=== PATIENT | female | born 1995 | race Caucasian/White ===

== ENCOUNTER 2017-01-29 12:05 | Emergency (ER) | payer MEDICAID ==
[~2017-01-29] VITALS: Ht 180.3 cm; Wt 90.0 kg
[~2017-01-29 12:05] MED LIST: BUPR-86 PO; CANA1TAB PO; CANA1TAB2 PO; CEPH-376 PO; CITA20TA9 PO; DOXY100T PO; GABA300C10 PO; GLYB5TAB3 PO; HYDR-3138 PO; HYDR-3240 PO; IBUP-1222 PO; IBUP800T PO; INSU100C SQ-INSULIN; INSU100V13 SQ; INSU300I SQ-INSULIN; LISI5TAB7 PO; ONDA-39 PO; ONDA4TAB7 PO; OXYC-223 PO; OXYC-302 PO; PNV1TABL4 PO; SULF1TAB24 PO; TRAZ100T15 PO; VANC125C11 PO
[2017-01-29 12:06] VITALS: BP 127/86
[2017-01-29] MEDS ORDERED: FLUORESCEIN OPHTHALMIC 1 MG STRIP ONE (12:33)
[2017-01-29] MEDS ORDERED: PROPARACAINE OPHTH 0.5%, 15ML ONE (12:33)
[2017-01-29] MEDS ORDERED: PROPARACAINE OPHTH 0.5%, 15ML EACHEYE ONE (13:00)
[2017-01-29] MEDS ORDERED: FLUORESCEIN OPHTHALMIC 1 MG STRIP EACHEYE ONE (13:00)
== END 2017-01-29 13:03 | disposition home or self-care (01) ==
LOC: ED 12:57
DX: H10.31 Unspecified acute conjunctivitis, right eye (principal); E11.9 Type 2 diabetes mellitus without complications
CPT/HCPCS: 99281

== ENCOUNTER 2017-03-20 11:09 | Inpatient (IN) | payer MEDICAID ==
[~2017-03-20] VITALS: Ht 180.3 cm; Wt 86.2 kg
[2017-03-20] MEDS ORDERED: VANCOMYCIN PER PHARMACY MC PRN ×2 (11:30→16:00)
[2017-03-20] MEDS ORDERED: SODIUM CHLORIDE FLUSH 10ML SYR IVF ONE (12:00)
[2017-03-20] MEDS ORDERED: VANCOMYCIN 1,800 MG in SODIUM CHLORIDE 0.9% 250 ML IV ONE (12:00)
[2017-03-20 13:55] LABS: BLOOD UREA NITROGEN 12 mg/dL (7-18)
[2017-03-20] MEDS ORDERED: HYDROcodone/APAP 5/325 TABLET PO ONE (14:00)
[2017-03-20] MEDS ORDERED: INSULIN SINGLE DOSE, ER SQ-INSULIN ONE (14:39)
[2017-03-20] MEDS: INSULIN REGULAR 100 UNITS/ML, 3ML VIAL SQ-INSULIN SCH (14:41)
[2017-03-20] MEDS ORDERED: HYDROcodone/APAP 5/325 TABLET ONE (14:43)
[2017-03-20] MEDS ORDERED: SODIUM CHLORIDE FLUSH 10ML SYR IVF PRN (15:30)
[2017-03-20] MEDS ORDERED: SODIUM CHLORIDE 0.9% 1,000ML IVBOLUS ONE (15:30)
[2017-03-20] MEDS ORDERED: LORazepam 1MG TABLET PO PRN (16:00)
[2017-03-20] MEDS: INSULIN ASPART 100 UNITS/ML, PEN SQ-INSULIN SCH ×2 (16:00→21:11)
[2017-03-20] MEDS ORDERED: TRAZODONE 50MG TABLET PO PRN (16:00)
[2017-03-20] MEDS ORDERED: DEXTROSE 50%, 50ML SYRINGE IVPush PRN (16:00)
[2017-03-20] MEDS ORDERED: LABETALOL 5MG/ML, 20ML IVPush PRN (16:00)
[2017-03-20] MEDS ORDERED: DOCUSATE 100 MG CAPSULE PO PRN (16:00)
[2017-03-20] MEDS ORDERED: DEXTROSE 4 GM TAB.CHEW PO PRN (16:00)
[2017-03-20] MEDS ORDERED: GLUCAGON 1 MG IM PRN (16:00)
[2017-03-20] MEDS ORDERED: ACETAMINOPHEN 325 MG TABLET PO PRN (16:00)
[2017-03-20] MEDS ORDERED: ONDANSETRON 2MG/ML, 2ML IVPush PRN (16:00)
[2017-03-20] MEDS ORDERED: CLINDAMYCIN PMX 900MG/50ML 50 ML ONE (16:31)
[2017-03-20] MEDS ORDERED: HEPARIN 5,000 UNITS/ML, 1ML ONE (16:31)
[2017-03-20] MEDS: SODIUM CHLORIDE 0.9% 1,000 ML IV SCH ×2 (16:39→23:46)
[2017-03-20] MEDS: HEPARIN 5,000 UNITS/ML, 1ML SQ SCH ×2 (16:40→23:47)
[2017-03-20] MEDS: CLINDAMYCIN PMX 900MG/50ML 50 ML IV SCH ×2 (16:40→23:46)
[2017-03-20 17:57] VITALS: BP 107/66
[2017-03-20] MEDS ORDERED: PHARMACOKINETIC CONSULTATION MC ONE (18:00)
[2017-03-20] MEDS ORDERED: PHARMACOKINETIC MONITORING MC PRN (18:00)
[2017-03-20 18:40] VITALS: BP 111/71
[2017-03-20] MEDS: SODIUM CHLORIDE FLUSH 10ML SYR IVF SCH (21:00)
[2017-03-20] MEDS: INSULIN DETEMIR 100 UNITS/ML, PEN SQ-INSULIN SCH (21:11)
[2017-03-21 01:36] VITALS: BP 111/74
[2017-03-21] MEDS: VANCOMYCIN 1,800 MG in SODIUM CHLORIDE 0.9% 250 ML IV SCH ×2 (01:47→14:01)
[2017-03-21 05:32] LABS: BLOOD UREA NITROGEN 10 mg/dL (7-18)
[2017-03-21] MEDS: CLINDAMYCIN PMX 900MG/50ML 50 ML IV SCH ×3 (07:45→23:47)
[2017-03-21] MEDS: INSULIN ASPART 100 UNITS/ML, PEN SQ-INSULIN SCH ×4 (07:46→21:47)
[2017-03-21] MEDS: HEPARIN 5,000 UNITS/ML, 1ML SQ SCH ×3 (07:46→23:47)
[2017-03-21] MEDS: SODIUM CHLORIDE FLUSH 10ML SYR IVF SCH ×2 (07:47→21:00)
[2017-03-21 08:03] VITALS: BP 124/79
[2017-03-21] MEDS: INSULIN REGULAR 100 UNITS/ML, 3ML VIAL SQ-INSULIN SCH ×3 (08:21→16:22)
[2017-03-21] MEDS: INSULIN DETEMIR 100 UNITS/ML, PEN SQ-INSULIN SCH ×2 (09:31→21:46)
[2017-03-21] MEDS: SODIUM CHLORIDE 0.9% 1,000 ML IV SCH ×2 (11:16→22:11)
[2017-03-21 14:56] VITALS: BP 112/74
[2017-03-21 21:45] VITALS: BP 116/79
[2017-03-22] MEDS: VANCOMYCIN 1,800 MG in SODIUM CHLORIDE 0.9% 250 ML IV SCH ×2 (02:15→15:42)
[2017-03-22 03:35] VITALS: BP 147/92
[2017-03-22] MEDS: SODIUM CHLORIDE 0.9% 1,000 ML IV SCH (06:02)
[2017-03-22 06:21] LABS: ASPARTATE AMINO TRANSFERASE 11 U/L (15-37); BLOOD UREA NITROGEN 18 mg/dL (7-18)
[2017-03-22 07:04] VITALS: BP 121/80
[2017-03-22] MEDS: INSULIN ASPART 100 UNITS/ML, PEN SQ-INSULIN SCH ×3 (07:49→16:00)
[2017-03-22] MEDS: HEPARIN 5,000 UNITS/ML, 1ML SQ SCH ×2 (07:49→16:00)
[2017-03-22] MEDS: CLINDAMYCIN PMX 900MG/50ML 50 ML IV SCH (07:49)
[2017-03-22] MEDS: INSULIN DETEMIR 100 UNITS/ML, PEN SQ-INSULIN SCH (07:50)
[2017-03-22] MEDS: SODIUM CHLORIDE FLUSH 10ML SYR IVF SCH ×2 (07:52→10:15)
[2017-03-22 14:03] VITALS: BP 117/89
[2017-03-22] MEDS ORDERED: SULF1TAB24 PO (15:04)
[2017-03-22 15:44] VITALS: BP 121/82
== END 2017-03-22 16:15 | disposition left against medical advice (07) | DRG 603 ==
LOC: ED 14:13 → EDIP 15:31 → 4NOR 18:02
PROVIDERS: ADMIT Internal Medicine; ATTEND Internal Medicine
DX: L03.211 Cellulitis of face (principal); E87.1 Hypo-osmolality and hyponatremia; R65.10 Systemic inflammatory response syndrome (SIRS) of non-infectious origin without acute organ dysfunction; F15.10 Other stimulant abuse, uncomplicated; B95.62 Methicillin resistant Staphylococcus aureus infection as the cause of diseases classified elsewhere; E10.65 Type 1 diabetes mellitus with hyperglycemia; F19.10 Other psychoactive substance abuse, uncomplicated; Z90.49 Acquired absence of other specified parts of digestive tract; Z79.4 Long term (current) use of insulin; Z90.89 Acquired absence of other organs; Z91.14 Patient's other noncompliance with medication regimen; Z86.14 Personal history of Methicillin resistant Staphylococcus aureus infection
CPT/HCPCS: 36415; 80048; 80053; 82962; 83036; 83605; 83735; 84100; 85025; 87040; 93306; 96361; 96365; J1644; J1815; J3370; J7030; J7050

== ENCOUNTER 2017-05-25 23:56 | Emergency (ER) | payer MEDICAID ==
[~2017-05-25] VITALS: Ht 170.2 cm; Wt 88.7 kg
[~2017-05-25 23:56] MED LIST changes: -HYDR-3138 PO; +HYDR-3237 PO; +IBUP-1223 PO; -IBUP800T PO; -ONDA-39 PO; +ONDA4TAB12 PO; -OXYC-223 PO; +OXYC-306 PO
[2017-05-26] MEDS ORDERED: SODIUM CHLORIDE 0.9% 1,000ML IVBOLUS ONE (01:00)
[2017-05-26] MEDS ORDERED: SODIUM CHLORIDE FLUSH 10ML SYR IVF ONE (01:00)
[2017-05-26 01:08] LABS: HEMATOCRIT 44.5 % (34.6-47.8); HEMOGLOBIN 15.2 g/dL (11.7-16.4); WHITE BLOOD COUNT 9.3 x10^3/uL (3.4-10)
[2017-05-26 01:21] LABS: BLOOD UREA NITROGEN 9 mg/dL (7-18)
[2017-05-26] MEDS ORDERED: MORPHINE SULFATE 4 MG/ML, 1ML ONE (01:23)
[2017-05-26] MEDS ORDERED: ONDANSETRON 2MG/ML, 2ML ONE (01:23)
[2017-05-26 01:27] LABS: ASPARTATE AMINO TRANSFERASE 11 U/L (15-37)
[2017-05-26] MEDS ORDERED: ONDANSETRON 2MG/ML, 2ML IVPush ONE (01:30)
[2017-05-26] MEDS ORDERED: MORPHINE SULFATE 4 MG/ML, 1ML IVPush PRN (01:30)
[2017-05-26 02:15] VITALS: BP 127/90
[2017-05-26] MEDS ORDERED: INSULIN REGULAR 100 UNITS/ML, 3ML VIAL SQ-INSULIN ONE (02:30)
== END 2017-05-26 03:00 | disposition home or self-care (01) ==
LOC: ED 23:59
DX: S90.32XA Contusion of left foot, initial encounter (principal); S90.512A Abrasion, left ankle, initial encounter; S09.90XA Unspecified injury of head, initial encounter; E10.65 Type 1 diabetes mellitus with hyperglycemia; F17.210 Nicotine dependence, cigarettes, uncomplicated; Z79.4 Long term (current) use of insulin; V03.90XA Pedestrian on foot injured in collision with car, pick-up truck or van, unspecified whether traffic or nontraffic accident, initial encounter; Y93.89 Activity, other specified; Y92.488 Other paved roadways as the place of occurrence of the external cause; Y99.8 Other external cause status
CPT/HCPCS: 36415; 70450; 72125; 73610; 73630; 80053; 82010; 82962; 84703; 85025; 96372; 96374; 96375; 99285; J2405; J7030

== ENCOUNTER 2018-07-03 10:19 | Emergency (ER) | payer MEDICAID ==
[~2018-07-03] VITALS: Ht 180.3 cm; Wt 97.6 kg
[~2018-07-03 10:19] MED LIST changes: +TRAZ-137 PO; -TRAZ100T15 PO
[2018-07-03] MEDS ORDERED: LIDOCAINE-MPF 1%, 5ML ONE (10:57)
[2018-07-03] MEDS ORDERED: LIDOCAINE-MPF 1%, 5ML INFIL ONE (11:00)
[2018-07-03] MEDS ORDERED: HYDROcodone/APAP 5/325 TABLET PO ONE (11:30)
[2018-07-03] MEDS ORDERED: HYDROcodone/APAP 5/325 TABLET ONE (11:33)
[2018-07-03 11:40] VITALS: BP 138/81
== END 2018-07-03 11:42 | disposition home or self-care (01) ==
LOC: ED 10:42
DX: L02.01 Cutaneous abscess of face (principal); E11.9 Type 2 diabetes mellitus without complications; Z90.49 Acquired absence of other specified parts of digestive tract
CPT/HCPCS: 10060; 99283

== ENCOUNTER 2018-10-15 16:54 | Emergency (ER) | payer MEDICAID ==
[~2018-10-15] VITALS: Ht 180.3 cm; Wt 92.9 kg
[2018-10-15 17:14] VITALS: BP 100/76
--- NOTE | 2018-10-15 17:23 | NUR ---
PT AMBULATED TO ROOM WITH EDT.
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
--- NOTE | 2018-10-15 17:39 | NUR ---
AFSHAN DONAHUE, AT BEDSIDE TO EVALUATE PT.
--- NOTE | 2018-10-15 18:13 | NUR ---
Patient/Caregiver given discharge instructions and they have confirmed that they understand the instructions. Patient ambulatory with steady gait.
[2018-10-15] MEDS ORDERED: HUMALOG SC (19:47)
[2018-10-15] MEDS ORDERED: INSU100I28 SQ-INSULIN (19:47)
== END 2018-10-15 18:14 | disposition home or self-care (01) ==
LOC: ED 18:08
DX: E10.65 Type 1 diabetes mellitus with hyperglycemia (principal); E66.9 Obesity, unspecified; Z76.0 Encounter for issue of repeat prescription
CPT/HCPCS: 82962; 99283

== ENCOUNTER 2018-10-24 08:07 | Emergency (ER) | payer MEDICAID ==
[~2018-10-24] VITALS: Ht 180.3 cm; Wt 93.6 kg
[~2018-10-24 08:07] MED LIST changes: +HUMALOG SC; +INSU100I28 SQ-INSULIN
[2018-10-24 08:09] VITALS: BP 131/86
--- NOTE | 2018-10-24 08:48 | NUR ---
to rm 5 from lobby
--- NOTE | 2018-10-24 09:35 | NUR ---
Discharge instructions discussed with patient including when to return to emergency department, verbalizes understanding. Prescription provided with instruction for use.
== END 2018-10-24 09:39 | disposition home or self-care (01) ==
LOC: ED 09:25
DX: L03.811 Cellulitis of head [any part, except face] (principal); E11.9 Type 2 diabetes mellitus without complications; E66.8 Other obesity; Z68.28 Body mass index [BMI] 28.0-28.9, adult
CPT/HCPCS: 82962; 99283

== ENCOUNTER 2018-10-30 07:40 | Emergency (ER) | payer MEDICAID ==
[~2018-10-30] VITALS: Ht 180.3 cm; Wt 90.9 kg
[2018-10-30 07:46] VITALS: BP 142/97
[2018-10-30] MEDS ORDERED: CLIN300C8 PO (08:03)
== END 2018-10-30 08:39 | disposition home or self-care (01) ==
LOC: ED 08:33
DX: L02.811 Cutaneous abscess of head [any part, except face] (principal); E11.65 Type 2 diabetes mellitus with hyperglycemia; E66.9 Obesity, unspecified
CPT/HCPCS: 10160; 99284

== ENCOUNTER 2019-11-25 07:44 | Emergency (ER) | payer MEDICAID ==
[~2019-11-25] VITALS: Ht 180.3 cm; Wt 106.0 kg
[~2019-11-25 07:44] MED LIST changes: +CLIN300C8 PO; +ONDA-89 PO; -ONDA4TAB12 PO; -TRAZ-137 PO; +TRAZ-175 PO
--- NOTE | 2019-11-25 07:57 | NUR ---
occupational health manager note: L&D called for heart tones on pt.
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
[2019-11-25] MEDS ORDERED: FAMOTIDINE 20 MG/2 ML ONE (08:30)
[2019-11-25] MEDS ORDERED: SODIUM CHLORIDE FLUSH 10ML SYR IVF ONE (08:30)
[2019-11-25] MEDS ORDERED: FAMOTIDINE 20 MG/2 ML IV ONE (08:30)
[2019-11-25] MEDS ORDERED: ACETAMINOPHEN 500 MG TABLET PO ONE (08:30)
[2019-11-25] MEDS ORDERED: ONDANSETRON 2MG/ML, 2ML ONE (08:30)
[2019-11-25] MEDS ORDERED: ONDANSETRON 2MG/ML, 2ML IVPush ONE (08:30)
[2019-11-25 08:50] LABS: ALANINE AMINOTRANSFERASE 11 U/L (12-78); ALBUMIN 1.8 g/dL (3.4-5.0); ANION GAP 10 mmol/L (5-15); CHLORIDE 104 mmol/L (98-107); CREATININE 0.76 mg/dL (0.55-1.02)
[2019-11-25 08:51] LABS: MEAN CORPUSCULAR HEMOGLOBIN 27.8 pg (27.0-34.8); MEAN CORPUSCULAR HGB CONC 33.2 g/dL (32.4-35.8); MEAN CORPUSCULAR VOLUME 83.8 fL (80-100); MEAN PLATELET VOLUME 11.6 fL (7.4-10.4); PLATELET COUNT 156 x10^3/uL (130-400); RED BLOOD COUNT 4.76 x10^6/uL (3.82-5.3); RED CELL DISTRIBUTION WIDTH 13.6 % (9.6-15.2)
[2019-11-25 08:52] LABS: ALKALINE PHOSPHATASE 129 U/L (45-117); BILIRUBIN,TOTAL 0.3 mg/dL (0.2-1.0); TOTAL PROTEIN 6.3 g/dL (6.4-8.2)
[2019-11-25 09:10] VITALS: BP 116/68
[2019-11-25 09:19] LABS: MD YES
[2019-11-25 09:27] LABS: BAND#(MANUAL) 0.78 x10^3/uL; BANDS%(MANUAL) 7 % (0-7); LYMPH#(MANUAL) 1.23 x10^3/uL (1-3.4); LYMPHS% (MANUAL) 11 % (22-44); MONOS#(MANUAL) 0.56 x10^3/uL (0.3-2.7); MONOS% (MANUAL) 5 % (2-9); REACTIVE LYMPHS # (MANUAL) 0.11 x10^3/uL (0-0); REACTIVE LYMPHS % (MANUAL) 1 % (0-0); SEG#(MANUAL) 8.51 x10^3/uL (1.8-6.8); SEGS% (MANUAL) 76 % (42-75)
[2019-11-25 09:28] LABS: <PLATELET ESTIMATE> ADEQUATE; <RBC MORPHOLOGY> NORMAL; LARGE PLATELETS 1+; PMNS WITH VACUOLES 1+
[2019-11-25 09:39] LABS: MICROSCOPIC AUTO
[2019-11-25 09:44] LABS: CULTURE INDICATED? YES
[2019-11-25 09:45] LABS: RAPID INFLUENZA A Negative (Negative); RAPID INFLUENZA B Negative (Negative)
[2019-11-25 09:50] LABS: AMPHETAMINE SCREEN, URINE Negative (Negative); BARBITURATE SCREEN, URINE Negative (Negative); BENZODIAZEPINE SCREEN, URINE Negative (Negative); CANNABINOID SCREEN, URINE Negative (Negative); COCAINE SCREEN, URINE Negative (Negative); METHADONE SCREEN, URINE Negative (Negative); OPIATE SCREEN, URINE Negative (Negative)
--- NOTE | 2019-11-25 09:52 | NUR ---
Received report and assumed patient care. RN to bedside, educated patient on need for urinalysis. Patient agreeable. RN reviewed clean catch urine instructions. Patient verbalized understanding. Ambulated steadily to bathroom. Awaiting analysis.
== END 2019-11-25 10:56 | disposition home or self-care (01) ==
LOC: ED 09:19
DX: O23.13 Infections of bladder in pregnancy, third trimester (principal); O21.8 Other vomiting complicating pregnancy; R10.13 Epigastric pain; E66.9 Obesity, unspecified; Z68.32 Body mass index [BMI] 32.0-32.9, adult; Z90.49 Acquired absence of other specified parts of digestive tract; Z90.89 Acquired absence of other organs; Z3A.34 34 weeks gestation of pregnancy
CPT/HCPCS: 36415; 71045; 80053; 80307; 81001; 83690; 85025; 87077; 87081; 87086; 87186; 87400; 87880; 96374; 96375; 99284; J2405; J3490

== ENCOUNTER 2019-12-25 14:13 | Emergency (ER) | payer MEDICAID ==
[~2019-12-25] VITALS: Ht 172.7 cm; Wt 92.2 kg
[2019-12-25 14:20] VITALS: BP 133/84
[2019-12-25] MEDS ORDERED: PHENAZOPYRIDINE 200 MG TABLET PO ONE (15:00)
[2019-12-25 15:06] LABS: BASOPHILS # (AUTO) 0.04 x10^3/uL (0-0.1); BASOPHILS % (AUTO) 0 % (0-1); EOSINOPHILS # (AUTO) 0.16 x10^3/uL (0-0.4); EOSINOPHILS % (AUTO) 2 % (1-7); LYMPHOCYTES # (AUTO) 2.21 x10^3/uL (1-3.4); LYMPHOCYTES % (AUTO) 21 % (22-44); MD NO; MEAN CORPUSCULAR HEMOGLOBIN 27.3 pg (27.0-34.8); MEAN CORPUSCULAR HGB CONC 33.3 g/dL (32.4-35.8); MEAN CORPUSCULAR VOLUME 82.2 fL (80-100); MEAN PLATELET VOLUME 9.9 fL (7.4-10.4); MONOCYTES % (AUTO) 5 % (2-9); NEUTROPHILS # (AUTO) 7.68 x10^3/uL (1.8-6.8); NEUTROPHILS % (AUTO) 73 % (42-75); PLATELET COUNT 380 x10^3/uL (130-400); RED BLOOD COUNT 5.63 x10^6/uL (3.82-5.3); RED CELL DISTRIBUTION WIDTH 13.8 % (9.6-15.2)
[2019-12-25] MEDS ORDERED: PHENAZOPYRIDINE 200 MG TABLET ONE (15:06)
[2019-12-25 15:07] LABS: ALBUMIN 3.2 g/dL (3.4-5.0); ANION GAP 10 mmol/L (5-15); CALCIUM 9.1 mg/dL (8.5-10.1); CHLORIDE 103 mmol/L (98-107)
[2019-12-25 15:11] LABS: ALANINE AMINOTRANSFERASE 29 U/L (12-78); ALKALINE PHOSPHATASE 116 U/L (45-117); BILIRUBIN,TOTAL 0.3 mg/dL (0.2-1.0); CREATININE 0.87 mg/dL (0.55-1.02); TOTAL PROTEIN 8.5 g/dL (6.4-8.2)
[2019-12-25 15:37] LABS: MICROSCOPIC AUTO
[2019-12-25 15:47] LABS: CULTURE INDICATED? YES
[2019-12-25] MEDS ORDERED: ACETAMINOPHEN 500 MG TABLET PO ONE (16:30)
[2019-12-25] MEDS ORDERED: ACETAMINOPHEN 500 MG TABLET ONE ×2 (16:34)
== END 2019-12-25 17:16 | disposition home or self-care (01) ==
LOC: ED 16:58
DX: N30.00 Acute cystitis without hematuria (principal); E11.65 Type 2 diabetes mellitus with hyperglycemia; E66.9 Obesity, unspecified; Z90.49 Acquired absence of other specified parts of digestive tract
CPT/HCPCS: 36415; 80053; 81001; 85025; 87077; 87086; 87186; 99283

== ENCOUNTER 2020-01-23 20:57 | Emergency (ER) | payer MEDICAID ==
[~2020-01-23] VITALS: Ht 180.3 cm; Wt 100.6 kg
--- NOTE | 2020-01-23 21:12 | NUR ---
PT AMBULATORY TO ROOM, STEADY GAIT.
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
[2020-01-23] MEDS ORDERED: SODIUM CHLORIDE 0.9% 1,000ML IVBOLUS ONE (22:00)
[2020-01-23] MEDS ORDERED: SODIUM CHLORIDE FLUSH 10ML SYR IVF ONE (22:00)
[2020-01-23 22:08] LABS: BASOPHILS # (AUTO) 0.03 x10^3/uL (0-0.1); BASOPHILS % (AUTO) 0 % (0-1); EOSINOPHILS # (AUTO) 0.23 x10^3/uL (0-0.4); EOSINOPHILS % (AUTO) 3 % (1-7); LYMPHOCYTES # (AUTO) 3.02 x10^3/uL (1-3.4); LYMPHOCYTES % (AUTO) 35 % (22-44); MD NO; MEAN CORPUSCULAR HEMOGLOBIN 27.4 pg (27.0-34.8); MEAN CORPUSCULAR HGB CONC 33.4 g/dL (32.4-35.8); MEAN PLATELET VOLUME 10.6 fL (7.4-10.4); MONOCYTES # (AUTO) 0.53 x10^3/uL (0.2-0.8); MONOCYTES % (AUTO) 6 % (2-9); NEUTROPHILS # (AUTO) 4.85 x10^3/uL (1.8-6.8); NEUTROPHILS % (AUTO) 56 % (42-75); PLATELET COUNT 208 x10^3/uL (130-400); RED BLOOD COUNT 4.72 x10^6/uL (3.82-5.3)
[2020-01-23 22:18] LABS: ALANINE AMINOTRANSFERASE 31 U/L (12-78); ALBUMIN 3.3 g/dL (3.4-5.0); ANION GAP 7 mmol/L (5-15); CHLORIDE 100 mmol/L (98-107); CREATININE 0.84 mg/dL (0.55-1.02)
--- NOTE | 2020-01-23 22:19 | NUR ---
PT SITTING IN BED, MEDICATED TO OCT. NO SIGNS OF DISTRESS, NO COMPLAINTS.
[2020-01-23 22:23] LABS: ALKALINE PHOSPHATASE 95 U/L (45-117); BILIRUBIN,TOTAL 0.1 mg/dL (0.2-1.0); TOTAL PROTEIN 7.1 g/dL (6.4-8.2)
--- NOTE | 2020-01-23 23:06 | NUR ---
PT PROVIDED WITH NEW DEPENDS, SITTING IN BED, HOLDING BABY, NO SIGNS OF DISTRESS, NO COMPLAINTS. VSS, RESPIRATIONS EVEN AND UNLABORED, WILL CONTINUE TO MONITOR.
--- NOTE | 2020-01-23 23:12 | NUR ---
PT AMBULATORY TO IMAGING.
--- NOTE | 2020-01-24 00:20 | NUR ---
PT SITTING IN BED, FEEDING AND INTERACTING WITH BABY, NO SIGNS OF DISTRESS, RESPIRATIONS EVEN AND UNLABORED, WILL CONTINUE TO MONITOR. ALL NEEDS MET AT THIS TIME.
[2020-01-24 00:22] VITALS: BP 149/78
== END 2020-01-24 01:23 | disposition home or self-care (01) ==
LOC: ED 22:02
DX: O72.2 Delayed and secondary postpartum hemorrhage (principal); N93.8 Other specified abnormal uterine and vaginal bleeding; E11.65 Type 2 diabetes mellitus with hyperglycemia; R53.1 Weakness; Z90.49 Acquired absence of other specified parts of digestive tract; Z90.89 Acquired absence of other organs
CPT/HCPCS: 36415; 76830; 80053; 84703; 85025; 96360; 99284; J7030; 12032

== ENCOUNTER 2020-08-27 19:07 | Emergency (ER) | payer SELFPAY ==
[~2020-08-27] VITALS: Ht 180.3 cm; Wt 91.1 kg
[~2020-08-27 19:07] MED LIST changes: -CLIN300C8 PO; +CLIN300C9 PO
[2020-08-27] MEDS ORDERED: LIDOCAINE-MPF 1%, 5ML INFIL ONE (19:30)
[2020-08-27] MEDS ORDERED: LIDOCAINE-MPF 1%, 5ML ONE (19:31)
--- NOTE | 2020-08-27 19:44 | NUR ---
Patient comes in with complaints of an abcess on her back. Patient states that she gets them frequently and that this one is red and swollen. While property underwriter was checking patient bg patient asked for a covid test d/t having symtoms that started this morning (loss of taste and diarrhea) Patient states that she had it back in Apr and would like to be retest. Provider aware
[2020-08-27 20:25] VITALS: BP 120/63
== END 2020-08-27 20:28 | disposition home or self-care (01) ==
LOC: ED 19:59
DX: L02.212 Cutaneous abscess of back [any part, except buttock and flank] (principal); Z20.828 Contact with and (suspected) exposure to other viral communicable diseases; J06.9 Acute upper respiratory infection, unspecified; E11.65 Type 2 diabetes mellitus with hyperglycemia; E66.9 Obesity, unspecified; Z68.28 Body mass index [BMI] 28.0-28.9, adult; Z90.89 Acquired absence of other organs; Z90.49 Acquired absence of other specified parts of digestive tract
CPT/HCPCS: 10060; 82962; 87635; 99283